=== PATIENT | male | born 1960 | race Caucasian/White ===

== ENCOUNTER 2018-11-07 08:05 | Emergency (ER) | payer BC ==
--- NOTE | 2018-11-07 08:32 | EDM.PDOC ---
ED HPI GENERAL MEDICAL PROBLEM - General Chief Complaint: Lower Extremity Injury/Pain Stated Complaint: LEFT LEFT INJURY Time Seen by Provider: 11/07/18 08:23 Source of Information: Reports: Patient, RN Notes Reviewed - History of Present Illness INITIAL COMMENTS - FREE TEXT/NARRATIVE: 58-year-old male suffered a left ankle injury last evening chasing a cow. There was instant discomfort lateral aspect of ankle. 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 Then when he did try get up to check on cows again around midnight this morning the pain was even more severe. He continues to have pain, swelling lateral aspect of ankle with any attempts at weightbearing this morning. No other area of injury from this incident. No history of prior ankle problems. Left Lower Leg Pain Score (Numeric/FACES): 2 - Related Data Allergies Allergy/AdvReac Type Severity Reaction Status Date / Time No Known Allergies Allergy Verified 11/07/18 08:15 Home Meds: Home Meds Acetaminophen/HYDROcodone [[place] 325-5 MG] 1 tab PO Q6H PRN #14 tablet 11/07/18 [Rx] Past Medical History - Past Health History Medical/Surgical History: Denies Medical/Surgical History Social & Family History - Family History Family Medical History: Noncontributory - Tobacco Use Smoking Status *Q: Current Every Day Smoker Years of Tobacco use: 30 Packs/Tins Daily: 1.5 - Caffeine Use Caffeine Use: Reports: Coffee - Recreational Drug Use Recreational Drug Use: No Review of Systems - Review of Systems Review Of Systems: See Below Constitutional: Reports: No Symptoms Mouth/Throat: Reports: No Symptoms Respiratory: Denies: Shortness of Breath Cardiovascular: Denies: Chest Pain Musculoskeletal: Reports: Joint Pain (Moderate pain and swelling lateral aspect of ankle, worse with weightbearing), Other (No knee or upper leg discomfort). Denies: Foot Pain Skin: Reports: No Symptoms Neurological: Denies: Numbness, Tingling ED EXAM, GENERAL - Physical Exam Exam: See Below General Appearance: Alert, No Apparent Distress Head: Atraumatic Neck: Supple Respiratory/Chest: No Respiratory Distress Extremities: Joint Swelling (There is swelling of the lateral aspect of his left ankle, moderate tenderness diffusely lateral ankle, nontender medially, joint stable) Neurological: No Motor/Sensory Deficits Skin Exam: Warm, Dry, Normal Color ED TRAUMA EXTREMITY PROCEDURES - Splinting Left Lower Extremity Splint Site: Left lower leg Pre-Procedure NV Status: Normal Post-Procedure NV Status: Normal Splint Material: Fiberglass Splint Design: Posterior Applied & Form Fitted By: Provider Provider Post-Splint Application NV Check: NV Status Normal Course - Vital Signs Last Recorded V/S: Last Vital Signs Temp 97.9 F 11/07/18 08:12 Pulse 69 11/07/18 08:12 Resp 18 11/07/18 08:12 BP 147/82 H 11/07/18 08:12 Pulse Ox 94 L 11/07/18 08:12 - Re-Assessments/Exams Free Text/Narrative Re-Assessment/Exam: 11/07/18 09:31 X-ray shows fracture distal left fibula right at the ankle joint with very minimal lateral displacement Departure - Departure Time of Disposition: 09:32 Disposition: Home, Self-Care 01 Condition: Fair Clinical Impression: Fibula fracture Qualifiers: Encounter type: initial encounter Fibula location: distal Fracture type: closed Fracture morphology: unspecified fracture morphology Laterality: left Qualified Code(s): S82.832A - Other fracture of upper and lower end of left fibula, initial encounter for closed fracture - Discharge Information Prescriptions: Acetaminophen/HYDROcodone [[place] 325-5 MG] 1 tab PO Q6H PRN #14 tablet PRN Reason: Pain Referrals: PCP,None [Primary Care Provider] - Forms: ED Department Discharge Additional Instructions: Fiberglas splint, keep splint dry and clean, crutches, nonweightbearing is much as possible, keep ankle and foot elevated as much as possible, plan to see Dr. Saba, orthopedist early next week, call [phone] for appointment. Tylenol for mild to moderate discomfort as needed or hydrocodone if needed for more severe pain. Do not drive when taking hydrocodone.
--- NOTE | 2018-11-07 09:10 | CR ---
Left ankle: Four views of the left ankle were obtained. Comparison: No prior ankle study. Mildly displaced lateral malleolus fracture is seen. Soft tissue swelling is identified. No additional fracture or other bony abnormality is seen. Impression: 1. Mildly displaced lateral malleolus fracture with soft tissue swelling. Diagnostic code #3
== END 2018-11-07 09:40 | disposition home or self-care (01) ==
LOC: JD.ED 08:05
DX: S82.62XA Displaced fracture of lateral malleolus of left fibula, initial encounter for closed fracture (principal); F17.210 Nicotine dependence, cigarettes, uncomplicated; W00.0XXA Fall on same level due to ice and snow, initial encounter
CPT/HCPCS: 29515; 73610-26-LT; 73610-LT; 99283; 99283-25

== ENCOUNTER 2020-10-09 16:51 | Emergency (ER) | payer BC ==
--- NOTE | 2020-10-09 17:17 | EDM.PDOC ---
ED HPI GENERAL MEDICAL PROBLEM - General Chief Complaint: Lower Extremity Injury/Pain Stated Complaint: KNEE INJURY Time Seen by Provider: 10/09/20 17:04 Source of Information: Reports: Patient, RN Notes Reviewed History Limitations: Reports: No Limitations - History of Present Illness INITIAL COMMENTS - FREE TEXT/NARRATIVE: Patient is a 60-year-old male who presents to the ED for evaluation of a left knee injury. Patient notes that around 3:30 PM today, he was pulling a calf, and ended up getting kicked by the cow. He did not fall after this. He states that directly after the kick however he felt a lot of tightness/pressure in his knee joint, he was able to still move around and walk however he notes is very difficult or painful to do so. He did not take any pain medications prior to coming to the ER, but does show up with crutches due to a previous right lower leg fracture. He has been using ice at home and elevated the knee with a pillow. He denies any pain into the hip, and he has full range of motion in his foot and good pedal pulses. Patient denies any other sick-like symptoms, fever/chills, cough/shortness of breath, nausea/vomiting/diarrhea. Patient states his primary care provider would be Anna Gould when he has to go to the doctor. Treatments EDUCATION SPEC: Reports: Other (see below) Other Treatments EDUCATION SPEC: none Left Knee Pain Score (Numeric/FACES): 8 - Related Data Allergies Allergy/AdvReac Type Severity Reaction Status Date / Time No Known Allergies Allergy Verified 11/07/18 08:15 Home Meds: Home Meds Acetaminophen/HYDROcodone [[place] 325-5 MG] 1 tab PO Q6H PRN #30 tablet 10/09/20 [Rx] Past Medical History - Past Health History Medical/Surgical History: Denies Medical/Surgical History Social & Family History - Family History Family Medical History: No Pertinent Family History - Caffeine Use Caffeine Use: Reports: Coffee Review of Systems - Review of Systems Review Of Systems: Comprehensive ROS is negative, except as noted in HPI. ED EXAM, GENERAL - Physical Exam Exam: See Below Exam Limited By: No Limitations General Appearance: Alert, WD/WN, No Apparent Distress Respiratory/Chest: No Respiratory Distress, Lungs Clear, Normal Breath Sounds, No Accessory Muscle Use, Chest Non-Tender Cardiovascular: Normal Peripheral Pulses, Regular Rate, Rhythm, No Edema Peripheral Pulses: 2+: Dorsalis Pedis (L), Dorsalis Pedis (R) Extremities: No Pedal Edema, Normal Capillary Refill, Joint Swelling (to the entire left knee), Limited Range of Motion (of left knee d/t pain) Neurological: Alert, Oriented, Normal Cognition, No Motor/Sensory Deficits Psychiatric: Normal Affect, Normal Mood Skin Exam: Warm, Dry, Intact, Normal Color, No Rash Course - Vital Signs Last Recorded V/S: Last Vital Signs Temp 99.1 F 10/09/20 17:08 Pulse 82 10/09/20 17:08 Resp 20 10/09/20 17:08 BP 136/73 10/09/20 17:08 Pulse Ox 96 10/09/20 17:08 - Orders/Labs/Meds Orders: Active Orders 24 hr Category Date Time Status Knee Min 4V Lt [CR] Stat Exams 10/09/20 17:13 Ordered Meds: Medications Discontinued Medications Generic Name Dose Route Start Last Admin Trade Name Ольга PRN Reason Stop Dose Admin Hydromorphone HCl 1 mg 10/09/20 17:51 Dilaudid IM 10/09/20 17:52 ONETIME ONE - Re-Assessments/Exams Free Text/Narrative Re-Assessment/Exam: 10/09/20 17:17 Patient presents to the ED for evaluation of his left knee injury, we will go ahead and get x-rays to evaluate for bony injury or fracture. Patient was not requesting pain medication at this time. 10/09/20 18:00 The patient's x-rays have been taken, and do demonstrate a tibial plateau fracture on the lateral portion of the tibia. We will go ahead and place the patient in a knee immobilizer from the [facility] closet, he already came in with crutches, we will keep him nonweightbearing and have him follow-up with Dr. Simms for ongoing management. Departure - Departure Time of Disposition: 18:01 Disposition: Home, Self-Care 01 Condition: Good Clinical Impression: Tibial plateau fracture, left Qualifiers: Encounter type: initial encounter Fracture type: closed Qualified Code(s): S82.142A - Displaced bicondylar fracture of left tibia, initial encounter for closed fracture - Discharge Information *PRESCRIPTION DRUG MONITORING PROGRAM REVIEWED*: Yes *COPY OF PRESCRIPTION DRUG MONITORING REPORT IN PATIENT BRAYAN: No Instructions: How to Use a Knee Immobilizer, Tral-eg-Iimc, Nondisplaced Tibial Plateau Fracture Referrals: Anna Gould FUND DEVELOPMENT MANAGER [Primary Care Provider] - Forms: ED Department Discharge Additional Instructions: You have been evaluated in the ED for your left knee injury. Your x-ray demonstrated a left tibial plateau fracture, this does appear to be nondisplaced, and should likely not need surgery, if you remain nonweightbearing. You will need to wear the knee immobilizer, for ongoing management, and you will need to use the crutches to remain nonweightbearing. Please use ice as tolerated to the affected area. You may elevate the affected area to provide further relief from swelling. You may take Tylenol 500 mg or ibuprofen 600mg q6 hrs for pain relief. Please do so until you have a tolerable level of pain with activity. Do not exceed 4000mg Tylenol, Do not exceed 3200mg ibuprofen in a 24 hour time period. You were given a prescription for a strong pain medication, hydrocodone/acetaminophen 5/325, please take 1 tab every 6 hours as needed for pain not relieved by Tylenol or ibuprofen alone. Please note this does contain Tylenol in it, so do not take more than 4000 mg in a 24-hour time span. These medications can be addictive, so please take as few as possible to achieve adequate pain control. These meds can also be quite constipating, recommend [place] t you increase your oral fluid intake and take a stool softener like MiraLAX while taking these medications. Please call Ortho for follow-up and further evaluation Dr. Simms is our orthopedic surgeon, his office number is [phone]. Please call and set up an appointment as soon as possible for further management. Please return to ED if your symptoms should change or worsen. Sepsis Event Note (ED) - Evaluation Sepsis Screening Result: No Definite Risk - Focused Exam Vital Signs: Vital Signs Temp Pulse Resp BP Pulse Ox 10/09/20 17:08 99.1 F 82 20 136/73 96 - My Orders Last 24 Hours: My Active Orders 10/09/20 17:13 Knee Min 4V Lt [CR] Stat - Assessment/Plan Last 24 Hours: My Active Orders 10/09/20 17:13 Knee Min 4V Lt [CR] Stat
[2020-10-09] MEDS ORDERED: HYDROmorphone 1 MG/ML Syringe IM ONE (17:51)
--- NOTE | 2020-10-10 11:32 | CR ---
Left knee: 4 views of the left knee were obtained. Comparison: No previous study. Large joint effusion is seen. Fracture is noted in a vertical direction involving the lateral tibial plateau and metaphysis with mild displacement. No additional fracture is appreciated. Impression: 1. Lateral fracture within the tibia. 2. Large joint effusion. Diagnostic code #5
== END 2020-10-09 18:45 | disposition home or self-care (01) ==
LOC: JD.ED 16:51
DX: S82.142A Displaced bicondylar fracture of left tibia, initial encounter for closed fracture (principal); W55.22XA Struck by cow, initial encounter
CPT/HCPCS: 73564; 96372; 99283; J1170

== ENCOUNTER 2020-10-18 15:14 | Emergency (ER) | payer BC ==
--- NOTE | 2020-10-18 15:36 | EDM.PDOC ---
ED HPI GENERAL MEDICAL PROBLEM - General Chief Complaint: Lower Extremity Injury/Pain Stated Complaint: SWOLLEN L LEG Time Seen by Provider: 10/18/20 15:34 - History of Present Illness INITIAL COMMENTS - FREE TEXT/NARRATIVE: 60-year-old male presents the emergency room with left leg swelling. On the of his last month the patient had an unfortunate event. He was kicked by a cow in the left knee, and suffered a tibial plateau fracture. He is scheduled to have surgery on this on Sunday. However he has had increased swelling in the area the area is obviously uncomfortable from the fracture and he has ecchymosis in the area as well. He has not had any fevers or chills and does not feel ill. Left Lower Leg Pain Score (Numeric/FACES): 6 - Related Data Allergies Allergy/AdvReac Type Severity Reaction Status Date / Time No Known Allergies Allergy Verified 10/18/20 15:21 Home Meds: Home Meds Acetaminophen/HYDROcodone [[place] 325-5 MG] 1 tab PO Q6H PRN #30 tablet 10/09/20 [Rx] Cyclobenzaprine [Flexeril] 10 mg PO ASDIRECTED 10/18/20 [History] Enoxaparin [Lovenox] 40 mg IM DAILY 10/18/20 [History] Past Medical History - Past Health History Medical/Surgical History: Denies Medical/Surgical History HEENT History: Reports: Impaired Vision Other HEENT History: wears eyeglasses. Musculoskeletal History: Reports: Other (See Below) Other Musculoskeletal History: left lower leg fracture 2yrs ago Social & Family History - Family History Family Medical History: No Pertinent Family History - Tobacco Use Tobacco Use Status *Q: Current Every Day Tobacco User Years of Tobacco use: 30 Packs/Tins Daily: 1 - Caffeine Use Caffeine Use: Reports: Coffee - Recreational Drug Use Recreational Drug Use: No Review of Systems - Review of Systems Review Of Systems: See Below Constitutional: Reports: No Symptoms Respiratory: Reports: No Symptoms Cardiovascular: Reports: No Symptoms GI/Abdominal: Reports: No Symptoms ED EXAM, GENERAL - Physical Exam Exam: See Below Exam Limited By: No Limitations General Appearance: Alert, No Apparent Distress Head: Atraumatic, Normocephalic Neck: Normal Inspection, Supple, Non-Tender, Full Range of Motion Respiratory/Chest: No Respiratory Distress, Lungs Clear, Normal Breath Sounds, No Accessory Muscle Use, Chest Non-Tender Cardiovascular: Regular Rate, Rhythm, No Murmur, Other (Edema on the right lower extremity small amount of edema in the left lower extremity) GI/Abdominal: Normal Bowel Sounds, Soft, Non-Tender Neurological: Alert, Oriented, Normal Cognition Course - Vital Signs Last Recorded V/S: Last Vital Signs Temp 36.5 C 10/18/20 15:20 Pulse 66 10/18/20 15:20 Resp 16 10/18/20 15:20 BP 142/69 H 10/18/20 15:20 Pulse Ox 95 10/18/20 15:20 - Orders/Labs/Meds Orders: Active Orders 24 hr Category Date Time Status METH-RESIST S.AUR,MRSA BY PCR [MOLEC] Routine Lab 10/18/20 15:45 Received - Re-Assessments/Exams Free Text/Narrative Re-Assessment/Exam: 10/18/20 17:32 Repeat x-ray would probably be of no benefit lab work is not indicated we did check a venous Doppler to exclude DVT at this point, this is negative. Patient for pleased to hear this and are ready to go home. Departure - Departure Time of Disposition: 17:33 Disposition: Home, Self-Care 01 Clinical Impression: Left leg swelling - Discharge Information Referrals: Anna Gould, DENTAL INSURANCE BILLER [Primary Care Provider] - Forms: ED Department Discharge Additional Instructions: Return to the emergency room with any questions problems or concerning symptoms. Keep your foot and leg elevated is much as you can. Follow-up with Dr. Simms as scheduled. Sepsis Event Note (ED) - Evaluation Sepsis Screening Result: No Definite Risk - Focused Exam Vital Signs: Vital Signs Temp Pulse Resp BP Pulse Ox 10/18/20 15:20 36.5 C 66 16 142/69 H 95
--- NOTE | 2020-10-18 16:55 | US ---
Left lower extremity deep venous ultrasound: Duplex and color Doppler evaluation was obtained of the left common femoral, proximal greater saphenous, superficial femoral, popliteal, posterior tibial and peroneal veins. Right common femoral vein was also evaluated. Findings: Peroneal vein was not well visualized for evaluation. Lymph node is noted within the left groin which has a benign appearance and is fat replaced. Calf edema is identified. Other veins show normal phasic flow, augmentation and compression. Impression: 1. Nonvisualized left peroneal vein. 2. Other findings as noted above. 3. No findings of deep venous thrombosis is seen within the left lower extremity or within the right common femoral vein. Diagnostic code #2
== END 2020-10-18 17:45 | disposition home or self-care (01) ==
LOC: JD.ED 15:14
DX: R22.42 Localized swelling, mass and lump, left lower limb (principal); Z79.01 Long term (current) use of anticoagulants; Z72.0 Tobacco use
CPT/HCPCS: 87641; 93971-26-LT; 93971-LT; 99282; 99284-25

== ENCOUNTER 2020-10-20 08:02 | Day surgery (SDC) | payer BC ==
[~2020-10-20 08:02] MED LIST: Lactated Ringers 1,000 ML IV SCH; Lidocaine 1%/Sod Bicarbonate in NS 8.4% 1 ML Syringe IDERM PRN; Sodium Chloride 0.9% 10 ML Syringe FLUSH PRN
--- NOTE | 2020-10-20 10:10 | PCM.PREANE ---
Preanesthetic Assessment - Procedure Proposed Procedure: ORIF right tibia fracture - Anesthesia/Transfusion/Family Hx Anesthesia History: Unknown Family History of Anesthesia Reaction: No Transfusion History: No Prior Transfusion(s) - Review of Systems General: No Symptoms Pulmonary: No Symptoms Cardiovascular: Dyspnea on Exertion Gastrointestinal: No Symptoms Neurological: Numbness (left foot) Other: Reports: None - Physical Assessment NPO Status Date: 10/19/20 NPO Status Time: 00:00 Vital Signs: Last Vital Signs Temp 36.8 C 10/20/20 08:00 Pulse 64 10/20/20 08:00 Resp 18 10/20/20 08:00 BP 131/77 10/20/20 08:00 Pulse Ox 94 L 10/20/20 08:00 Height: 1.78 m Weight: 96.1 kg ASA Class: 2 Mental Status: Alert & Oriented x3 Airway Class: Mallampati = 1 Dentition: Reports: Normal Dentition Thyro-Mental Finger Breadths: 3 Mouth Opening Finger Breadths: 3 ROM/Head Extension: Full Lungs: Clear to Auscultation, Normal Respiratory Effort Cardiovascular: Regular Rate, Regular Rhythm - Lab Values: Laboratory Last Values WBC 8.28 K/mm3 (4.23-9.07) 10/20/20 08:28 RBC 4.53 M/mm3 (4.63-6.08) L 10/20/20 08:28 Hgb 13.9 gm/dl (13.7-17.5) 10/20/20 08:28 Hct 41.4 % (40.1-51.0) 10/20/20 08:28 MCV 91.4 fl (79.0-92.2) 10/20/20 08:28 MCH 30.7 pg (25.7-32.2) 10/20/20 08:28 MCHC 33.6 g/dl (32.2-35.5) 10/20/20 08:28 RDW Std Deviation 45.1 fL (35.1-43.9) H 10/20/20 08:28 Plt Count 255 K/mm3 (163-337) 10/20/20 08:28 MPV 9.9 fl (9.4-12.3) 10/20/20 08:28 Neut % (Auto) 60.5 % (34.0-67.9) 10/20/20 08:28 Lymph % (Auto) 23.9 % (21.8-53.1) 10/20/20 08:28 [place] % (Auto) 12.1 % (5.3-12.2) 10/20/20 08:28 Eos % (Auto) 2.3 (0.8-7.0) 10/20/20 08:28 Baso % (Auto) 0.4 % (0.1-1.2) 10/20/20 08:28 Neut # (Auto) 5.01 K/mm3 (1.78-5.38) 10/20/20 08:28 Lymph # (Auto) 1.98 K/mm3 (1.32-3.57) 10/20/20 08:28 [place] # (Auto) 1.00 K/mm3 (0.30-0.82) H 10/20/20 08:28 Eos # (Auto) 0.19 K/mm3 (0.04-0.54) 10/20/20 08:28 Baso # (Auto) 0.03 K/mm3 (0.01-0.08) 10/20/20 08:28 Sodium 140 mEq/L (136-145) 10/20/20 08:28 Potassium 4.2 mEq/L (3.5-5.1) 10/20/20 08:28 Chloride 105 mEq/L (98-107) 10/20/20 08:28 Carbon Dioxide 22 mEq/L (21-32) 10/20/20 08:28 Anion Gap 17.2 (5-15) H 10/20/20 08:28 BUN 23 mg/dL (7-18) H 10/20/20 08:28 Creatinine 1.0 mg/dL (0.7-1.3) 10/20/20 08:28 Est Cr Clr Drug Dosing 82.13 mL/min 10/20/20 08:28 Estimated GFR (MDRD) > 60 mL/min (>60) 10/20/20 08:28 BUN/Creatinine Ratio 23.0 (14-18) H 10/20/20 08:28 Glucose 110 mg/dL (74-106) H 10/20/20 08:28 Calcium 9.3 mg/dL (8.5-10.1) 10/20/20 08:28 Total Bilirubin 0.5 mg/dL (0.2-1.0) 10/20/20 08:28 AST 27 U/L (15-37) 10/20/20 08:28 ALT 63 U/L (16-63) 10/20/20 08:28 Alkaline Phosphatase 61 U/L (46-116) 10/20/20 08:28 Total Protein 7.3 g/dl (6.4-8.2) 10/20/20 08:28 Albumin 3.7 g/dl (3.4-5.0) 10/20/20 08:28 Globulin 3.6 gm/dL 10/20/20 08:28 Albumin/Globulin Ratio 1.0 (1-2) 10/20/20 08:28 - Allergies Allergies/Adverse Reactions: Allergies Allergy/AdvReac Type Severity Reaction Status Date / Time No Known Allergies Allergy Verified 10/20/20 09:15 - Anesthesia Plan Pre-Op Medication Ordered: None - Acknowledgements Anesthesia Type Planned: Spinal, Regional Block (adductor canal block for post- op pain control) Pt an Appropriate Candidate for the Planned Anesthesia: Yes Alternatives and Risks of Anesthesia Discussed w Pt/Guardian: Yes Pt/Guardian Understands and Agrees with Anesthesia Plan: Yes PreAnesthesia Questionnaire - Past Health History Medical/Surgical History: Denies Medical/Surgical History HEENT History: Reports: Impaired Vision, Other (See Below) Other HEENT History: wears glasses Musculoskeletal History: Reports: Other (See Below) Other Musculoskeletal History: left lower leg fracture 2 yrs ago, left tibial plateau fracture - Infectious Disease History Infectious Disease History: Reports: None - Past Surgical History Head Surgeries/Procedures: Reports: None - SUBSTANCE USE Tobacco Use Status *Q: Current Some Day Tobacco User Tobacco Use Within Last Twelve Months: Cigarettes Second Hand Smoke Exposure: No Days Per Week of Alcohol Use: 2 Number of Drinks Per Day: 2 Total Drinks Per Week: 4 Recreational Drug Use History: No - HOME MEDS Home Medications: Home Meds Enoxaparin [Lovenox] 40 mg IM DAILY 10/18/20 [History] Acetaminophen/HYDROcodone [[place] 325-5 MG] 1 - 2 tab PO Q6H PRN #30 tablet 10/20/20 [Rx] Aspirin [Aspirin EC] 325 mg PO BID #84 tab 10/20/20 [Rx] Cyclobenzaprine [Flexeril] 10 mg PO BID PRN #20 10/20/20 [Rx] - CURRENT (IN HOUSE) MEDS Current Meds: Current Medications Lactated Ringer's (Ringers, Lactated) 1,000 mls @ 125 mls/hr IV ASDIRECTED LILIAN Stop: 10/20/20 23:00 Last Admin: 10/20/20 08:28 Dose: 125 mls/hr Documented by: Lidocaine/Sodium Bicarbonate (Buffered Lidocaine 1% In Ns 8.4%) 0.25 ml IDERM ONETIME PRN PRN Reason: Prior to IV Start Stop: 10/20/20 18:00 Sodium Chloride (Saline Flush) 10 ml FLUSH ASDIRECTED PRN PRN Reason: Keep Vein Open Stop: 10/20/20 18:00
[2020-10-20] MEDS ORDERED: fentaNYL 100 MCG/2 ML SDV ONE (10:20)
[2020-10-20] MEDS ORDERED: Ondansetron 4 MG/2 ML SDV ONE (10:20)
[2020-10-20] MEDS ORDERED: Midazolam 1 MG/ML 2 ML SDV ONE (10:20)
[2020-10-20] MEDS ORDERED: Propofol 200 MG/20 ML SDV ONE ×3 (10:20→11:42)
[2020-10-20] MEDS ORDERED: ceFAZolin 1 GM Vial ONE (10:22)
[2020-10-20] MEDS ORDERED: Lactated Ringers 1,000 ML ONE (10:42)
[2020-10-20] MEDS ORDERED: Ketorolac 30 MG/ML SDV ONE (10:53)
[2020-10-20] MEDS: Bupivacaine 0.25% 10 ML SDV ONE ×2 (11:28→11:44)
--- NOTE | 2020-10-20 12:07 | CR ---
Left knee: 7 fluoroscopic spot views of the left knee were obtained utilizing C-arm device in the operating room. Comparison: Prior plain film left knee exam of 10/09/20. Study shows placement of plate and screws within the proximal tibia. This affixes previous fracture. Fluoroscopy time is given as 33.5 seconds. Impression: 1. Procedural study as noted above. Diagnostic code #2
[2020-10-20] MEDS ORDERED: fentaNYL 100 MCG/2 ML SDV IVPUSH PRN (12:13)
--- NOTE | 2020-10-20 12:14 | PCM.POSTAN ---
POST ANESTHESIA ASSESSMENT - MENTAL STATUS Mental Status: Alert, Oriented - VITAL SIGNS Vital Signs: Last Vital Signs Temp 36.8 C 10/20/20 08:00 Pulse 64 10/20/20 08:00 Resp 18 10/20/20 08:00 BP 131/77 10/20/20 08:00 Pulse Ox 94 L 10/20/20 08:00 - RESPIRATORY Respiratory Status: Respiratory Rate WNL, Airway Patent, O2 Saturation Stable, Supplemental Oxygen - CARDIOVASCULAR CV Status: Pulse Rate WNL, Blood Pressure Stable - GASTROINTESTINAL GI Status: No Symptoms - PAIN Pain Score: 0 - POST OP HYDRATION Hydration Status: Adequate & Stable - OBSERVATIONS Free Text/Narrative:: no anesthesia complications noted
[2020-10-20] MEDS ORDERED: Ropivacaine 0.5% 5 MG/ML 30 ML SDV ONE (12:20)
--- NOTE | 2020-10-20 12:44 | PCM.SN.2 ---
- Free Text/Narrative Note: Left selective femoral nerve block at the adductor canal for post-procedure pain control under US guidance requested by Dr. Simms. Time Out: 1225 Start: 1225 End: 1231 Chart reviewed. Consent signed. Questions answered. Appropriate monitors applied. Time out performed. Left mid-shaft femur identified with ultrasound, scanning medially of femur, the femoral artery in the adductor canal visualized, and the femoral nerve located laterally to the artery. The skin was prepped lateral to the ultrasound probe with chlorahexadine times two. The 21ga 4 insulated block needle was inserted under direct ultrasound guidance into the adductor canal. 25mL of 0.5% ropivacaine with 1:200,000 epinephrine was injected circumferentially around the nerve with intermittent negative aspiration noted. Patient tolerated the procedure well. Sterile technique noted along with sterile gloves, mask, and sterile probe cover. See picture on progress note and vital signs on nurses notes. Block completed in PACU. Reji Henriquez CRNA
--- NOTE | 2020-10-20 13:00 | PCM48HPAN ---
Post Anesthesia Note - EVALUATION WITHIN 48HRS OF ANESTHETIC Vital Signs in Normal Range: Yes Patient Participated in Evaluation: Yes Respiratory Function Stable: Yes Airway Patent: Yes Cardiovascular Function Stable: Yes Hydration Status Stable: Yes Pain Control Satisfactory: Yes Nausea and Vomiting Control Satisfactory: Yes Mental Status Recovered: Yes Vital Signs: Last Vital Signs Temp 36.7 C 10/20/20 12:45 Pulse 64 10/20/20 08:00 Resp 14 10/20/20 12:45 BP 106/54 L 10/20/20 12:45 Pulse Ox 92 L 10/20/20 12:45
[2020-10-20] MEDS ORDERED: Acetaminophen/HYDROcodone 325-5 MG Tab PO PRN (13:55)
--- NOTE | 2020-10-25 17:56 | PCM.OPNOTE ---
- General Post-Op/Procedure Note Date of Surgery/Procedure: 10/20/20 Operative Procedure(s): open reduction internal fixation of left lateral tibial plateau fracture Pre Op Diagnosis: left lateral tibial plateau split/depression fracture Post-Op Diagnosis: Same Anesthesia Technique: General LMA, Local Primary Surgeon: Star Simms Anesthesia Provider: Reji Henriquez Sales Representative Door To Door: Gilda Liu in mLs: 10 Complications: None Condition: Good
--- NOTE | 2020-11-01 08:00 | OR ---
DATE OF OPERATION: 10/20/2020 SURGEON: Star Simms MD OPERATION PERFORMED: Open reduction internal fixation of left lateral tibial plateau fracture. PREOPERATIVE DIAGNOSIS: Left lateral tibial plateau split depression fracture. POSTOPERATIVE DIAGNOSIS: Left lateral tibial plateau split depression fracture. ANESTHESIA: General LMA with local. ANESTHESIA PROVIDER: Reji Henriquez CRNA. JEWELRY MAKING INSTRUCTOR: Gilda Liu PA-C. ESTIMATED BLOOD LOSS: 10 mL. COMPLICATIONS: None. CONDITION: Stable. DESCRIPTION OF PROCEDURE: The patient was identified in the preoperative holding area. Proper site was marked, identified by the surgeon. The patient was taken back to the operative theater, where after adequate anesthesia the patient was placed supine on the radiolucent table. Left lower extremity had a nonsterile tourniquet applied and was then sterilely prepped and draped in the usual sterile fashion. OR time-out was performed. The patient received 2 g IV Ancef. Left lower extremity was exsanguinated. Tourniquet was insufflated to 250 mmHg. Standard curvilinear incision was made over the lateral tibial plateau. This was taken to the ITB band. IT band was split in the direction of its fibers and the anterior compartment was taken off the crest of the tibia. The submeniscal arthrotomy was then created and the split was found. At this time, a laminar ball point splitter was used to open the split area of the tibial plateau fracture. The patient was noted to have a large 1 cm x 1 cm area of large depression. At this time, a bone tamp was used to tamp this back up. Crushed cancellous bone chips were used underneath the gap. K-wire was used to hold this in place and then a large [id number] reduction clamp was then placed to compress the split portion of the lateral tibial plateau fracture back. A Chug lateral tibial locking plate was then placed under direct C-arm fluoroscopy. It was found to have anatomic reduction of the joint line and proper positioning of the plate. At this time, K-wires held the plate in place and then a nonlocking screw was placed in the shaft of the tibia. Four locking screws were then placed proximally and another 2 screws were placed down in the shaft of the plate and the tibia. It was found to have anatomic reduction on AP and lateral views. At this time, adequate saline was irrigated through the wound. 0 Vicryl was used for closure of the IT band, 2-0 Vicryl was used subcutaneously, and Prineo was used for closure of the skin. The patient had a sterile soft dressing placed and was placed in a hinged knee brace locked in extension and was sent to the PACU in stable condition. MMODAL /[id number]
== END 2020-10-20 15:48 | disposition home or self-care (01) ==
LOC: JD.SDS 08:02
PROVIDERS: ATTEND Orthopaedic Surgery
DX: S82.142A Displaced bicondylar fracture of left tibia, initial encounter for closed fracture (principal); G89.18 Other acute postprocedural pain; F17.210 Nicotine dependence, cigarettes, uncomplicated; Z79.82 Long term (current) use of aspirin; Z79.899 Other long term (current) drug therapy
CPT/HCPCS: 27536; 36415; 76000; 80053; 85025; A9270; C1713; J0690; J1885; J2250; J2405; J2704; J2795; J3010; J3490; J7120; 01392; 64450